=== PATIENT | male | born 1980 | race Two or more races ===

== ENCOUNTER 2018-09-04 15:25 | Emergency (ER) | payer BC ==
[2018-09-04] MEDS ORDERED: Flumazenil 0.1 MG/ML 5 ML MDV IV ONE (15:26)
[2018-09-04] MEDS ORDERED: Amiodarone 150 MG/3 ML SDV IV ONE (15:26)
[2018-09-04] MEDS ORDERED: Sodium Bicarbonate 8.4% 50 MEQ/50 ML Syringe IV ONE (15:26)
[2018-09-04] MEDS ORDERED: 50% Dextrose in Water 50 ML Syringe IV ONE (15:26)
--- NOTE | 2018-09-04 15:46 | EDM.PDOC ---
ED HPI GENERAL MEDICAL PROBLEM - General Stated Complaint: AMB Time Seen by Provider: 09/04/18 15:32 - History of Present Illness INITIAL COMMENTS - FREE TEXT/NARRATIVE: CODE BLUE note: Patient presents cardiopulmonary arrest intubated CPR in progress reported to be found in the [place] last seen heading towards the snowbank approximately 6: 30 AM. ACLS was initiated in the field on arrival here patient is pulseless nonrebreathing profoundly hypothermic with a unregistered rectal temp and ventricular fibrillation on the monitor central line was placed by myself ET tube was confirmed to be in good position with breath sounds equal bilaterally resuscitative measures are being continued and rewarming was initiated on arrival. Physical exam is a patient that's pulseless nonbreathing pupils are fixed and dilated chest abdomen and pelvis are without evidence of trauma or other significant findings. Impression is #1 cardiopulmonary arrest #2 hypothermia She remained fixed and dilated asystolic pulseless nonbreathing case was again discussed with family with general surgery and resuscitative measures were discontinued at 20:07 and patient was pronounced 20:07 ED ROS GENERAL - Review of Systems Review Of Systems: ROS reveals no pertinent complaints other than HPI. ED EXAM, GENERAL - Physical Exam Exam: See Below (See dictation) Course - Vital Signs Text/Narrative:: Active rewarming and resuscitative measures were continued for the better part of 3 hours we have accomplished a measured temperature of 75 he remains asystolic and unresponsive general surgery Dr. Hyatt was consult and is presenting to the ER to discuss case with family I also discussed case with Dr. Arguelles trauma surgery at who also agrees that any further resuscitative measures are futile at this point and there is no chance of survival. This was discussed with family by Dr. Kong and myself patient remained pulseless nonbreathing fixed and dilated with an asystolic rhythm and was pronounced at 2014 Last Recorded V/S: Last Vital Signs Temp 25.1 C L 09/04/18 19:21 Pulse 102 H 09/04/18 15:30 Resp 12 09/04/18 15:30 BP Pulse Ox 100 09/04/18 15:30 - Orders/Labs/Meds Orders: Active Orders 24 hr Category Date Time Status Cardiac Monitoring [RC] . DIRECTED Care 09/04/18 15:54 Active Communication Order [RC] STAT Care 09/04/18 15:53 Active EKG Documentation Completion [RC] STAT Care 09/04/18 15:53 Active Oxygen Therapy, ED [RC] ASDIRECTED Care 09/04/18 15:54 Active Chest 1V Frontal [CR] Stat Exams 09/04/18 15:53 Ordered Sodium Chloride 0.9% [Saline Flush] Med 09/04/18 15:54 Active 10 ml FLUSH ASDIRECTED PRN Sodium Chloride 0.9% [Saline Flush] Med 09/04/18 15:54 Active 2.5 ml FLUSH ASDIRECTED PRN Saline Lock Insert [OM.PC] Stat Oth 09/04/18 15:54 Ordered Medication Orders Sodium Chloride (Saline Flush) 10 ml FLUSH ASDIRECTED PRN PRN Reason: Keep Vein Open Sodium Chloride (Saline Flush) 2.5 ml FLUSH ASDIRECTED PRN PRN Reason: Keep Vein Open Labs: Laboratory Tests 09/04/18 09/04/18 09/04/18 Range/Units 15:30 15:30 15:30 WBC 17.65 H (4.0-11.0) K/uL RBC 4.18 L (4.50-5.90) M/uL Hgb 12.5 L (13.0-17.0) g/dL Hct 36.9 L (38.0-50.0) % MCV 88.3 (80.0-98.0) fL MCH 29.9 (27.0-32.0) pg MCHC 33.9 (31.0-37.0) g/dL RDW Std Deviation 42.2 (28.0-62.0) fl RDW Coeff of Suman 13 (11.0-15.0) % Plt Count 140 L (150-400) K/uL MPV 9.80 (7.40-12.00) fL Neut % (Auto) 62.6 (48.0-80.0) % Lymph % (Auto) 30.8 (16.0-40.0) % [place] % (Auto) 6.3 (0.0-15.0) % Eos % (Auto) 0.1 (0.0-7.0) % Baso % (Auto) 0.2 (0.0-1.5) % Neut # (Auto) 11.1 H (1.4-5.7) K/uL Lymph # (Auto) 5.4 H (0.6-2.4) K/uL [place] # (Auto) 1.1 H (0.0-0.8) K/uL Eos # (Auto) 0.0 (0.0-0.7) K/uL Baso # (Auto) 0.0 (0.0-0.1) K/uL Nucleated RBC % 0.0 /100WBC Nucleated RBCs # 0 K/uL INR 1.24 Sodium (136-148) mmol/L Potassium (3.5-5.1) mmol/L Chloride (98-107) mmol/L Carbon Dioxide (21.0-32.0) mmol/L BUN (7.0-18.0) mg/dL Creatinine (0.8-1.3) mg/dL Est Cr Clr Drug Dosing Estimated GFR (MDRD) ml/min Glucose (74-106) mg/dL POC Glucose (60-110) mg/dL Calcium (8.5-10.1) mg/dL Total Bilirubin (0.2-1.0) mg/dL AST (15-37) IU/L ALT (14-63) IU/L Alkaline Phosphatase (46-116) U/L Total Protein (6.4-8.2) g/dL Albumin (3.4-5.0) g/dL Globulin (2.6-4.0) g/dL Albumin/Globulin Ratio (0.9-1.6) Urine Color Urine Appearance Urine pH (5.0-8.0) Ur Specific Vernon (1.001-1.035) Urine Protein (NEGATIVE) mg/dL Urine Glucose (UA) (NEGATIVE) mg/dL Urine Ketones (NEGATIVE) mg/dL Urine Occult Blood (NEGATIVE) Urine Nitrite (NEGATIVE) Urine Bilirubin (NEGATIVE) Urine Urobilinogen (<2.0) EU/dL Ur Leukocyte Esterase (NEGATIVE) Urine RBC (0-2/HPF) Urine WBC (0-5/HPF) Ur Epithelial Cells (NONE-FEW) Amorphous Sediment (NEGATIVE) Urine Bacteria (NEGATIVE) Hyaline Casts (0-2/LPF) Urine Mucus (NONE-MOD) Urine Opiates Screen NEGATIVE (NEGATIVE) Ur Oxycodone Screen NEGATIVE (NEGATIVE) Urine Methadone Screen NEGATIVE (NEGATIVE) Ur Barbiturates Screen NEGATIVE (NEGATIVE) Ur Phencyclidine Scrn NEGATIVE (NEGATIVE) Ur Amphetamine Screen NEGATIVE (NEGATIVE) U Methamphetamines Scrn NEGATIVE (NEGATIVE) U Benzodiazepines Scrn NEGATIVE (NEGATIVE) U Cocaine Metab Screen POSITIVE (NEGATIVE) U Marijuana (THC) Screen NEGATIVE (NEGATIVE) Ethyl Alcohol mg/dL 09/04/18 09/04/18 09/04/18 Range/Units 15:30 15:30 16:36 WBC (4.0-11.0) K/uL RBC (4.50-5.90) M/uL Hgb (13.0-17.0) g/dL Hct (38.0-50.0) % MCV (80.0-98.0) fL MCH (27.0-32.0) pg MCHC (31.0-37.0) g/dL RDW Std Deviation (28.0-62.0) fl RDW Coeff of Suman (11.0-15.0) % Plt Count (150-400) K/uL MPV (7.40-12.00) fL Neut % (Auto) (48.0-80.0) % Lymph % (Auto) (16.0-40.0) % [place] % (Auto) (0.0-15.0) % Eos % (Auto) (0.0-7.0) % Baso % (Auto) (0.0-1.5) % Neut # (Auto) (1.4-5.7) K/uL Lymph # (Auto) (0.6-2.4) K/uL [place] # (Auto) (0.0-0.8) K/uL Eos # (Auto) (0.0-0.7) K/uL Baso # (Auto) (0.0-0.1) K/uL Nucleated RBC % /100WBC Nucleated RBCs # K/uL INR Sodium 142 (136-148) mmol/L Potassium 3.7 (3.5-5.1) mmol/L Chloride 107 (98-107) mmol/L Carbon Dioxide 14.9 L (21.0-32.0) mmol/L BUN 22 H (7.0-18.0) mg/dL Creatinine 1.3 (0.8-1.3) mg/dL Est Cr Clr Drug Dosing TNP Estimated GFR (MDRD) > 60.0 ml/min Glucose 33 L* (74-106) mg/dL POC Glucose 180 H (60-110) mg/dL Calcium 7.8 L (8.5-10.1) mg/dL Total Bilirubin 0.1 L (0.2-1.0) mg/dL AST 145 H (15-37) IU/L ALT 105 H (14-63) IU/L Alkaline Phosphatase 54 (46-116) U/L Total Protein 5.8 L (6.4-8.2) g/dL Albumin 2.8 L (3.4-5.0) g/dL Globulin 3.0 (2.6-4.0) g/dL Albumin/Globulin Ratio 0.9 (0.9-1.6) Urine Color YELLOW Urine Appearance CLEAR Urine pH 5.5 (5.0-8.0) Ur Specific Vernon >= 1.030 (1.001-1.035) Urine Protein 30 H (NEGATIVE) mg/dL Urine Glucose (UA) NEGATIVE (NEGATIVE) mg/dL Urine Ketones NEGATIVE (NEGATIVE) mg/dL Urine Occult Blood LARGE H (NEGATIVE) Urine Nitrite NEGATIVE (NEGATIVE) Urine Bilirubin NEGATIVE (NEGATIVE) Urine Urobilinogen 0.2 (<2.0) EU/dL Ur Leukocyte Esterase NEGATIVE (NEGATIVE) Urine RBC 2-4 (0-2/HPF) Urine WBC 1-3 (0-5/HPF) Ur Epithelial Cells RARE (NONE-FEW) Amorphous Sediment FEW (NEGATIVE) Urine Bacteria FEW (NEGATIVE) Hyaline Casts 1-3 (0-2/LPF) Urine Mucus FEW (NONE-MOD) Urine Opiates Screen (NEGATIVE) Ur Oxycodone Screen (NEGATIVE) Urine Methadone Screen (NEGATIVE) Ur Barbiturates Screen (NEGATIVE) Ur Phencyclidine Scrn (NEGATIVE) Ur Amphetamine Screen (NEGATIVE) U Methamphetamines Scrn (NEGATIVE) U Benzodiazepines Scrn (NEGATIVE) U Cocaine Metab Screen (NEGATIVE) U Marijuana (THC) Screen (NEGATIVE) Ethyl Alcohol 173 mg/dL 09/04/18 Range/Units 17:17 WBC (4.0-11.0) K/uL RBC (4.50-5.90) M/uL Hgb (13.0-17.0) g/dL Hct (38.0-50.0) % MCV (80.0-98.0) fL MCH (27.0-32.0) pg MCHC (31.0-37.0) g/dL RDW Std Deviation (28.0-62.0) fl RDW Coeff of Suman (11.0-15.0) % Plt Count (150-400) K/uL MPV (7.40-12.00) fL Neut % (Auto) (48.0-80.0) % Lymph % (Auto) (16.0-40.0) % [place] % (Auto) (0.0-15.0) % Eos % (Auto) (0.0-7.0) % Baso % (Auto) (0.0-1.5) % Neut # (Auto) (1.4-5.7) K/uL Lymph # (Auto) (0.6-2.4) K/uL [place] # (Auto) (0.0-0.8) K/uL Eos # (Auto) (0.0-0.7) K/uL Baso # (Auto) (0.0-0.1) K/uL Nucleated RBC % /100WBC Nucleated RBCs # K/uL INR Sodium (136-148) mmol/L Potassium (3.5-5.1) mmol/L Chloride (98-107) mmol/L Carbon Dioxide (21.0-32.0) mmol/L BUN (7.0-18.0) mg/dL Creatinine (0.8-1.3) mg/dL Est Cr Clr Drug Dosing Estimated GFR (MDRD) ml/min Glucose (74-106) mg/dL POC Glucose 116 H (60-110) mg/dL Calcium (8.5-10.1) mg/dL Total Bilirubin (0.2-1.0) mg/dL AST (15-37) IU/L ALT (14-63) IU/L Alkaline Phosphatase (46-116) U/L Total Protein (6.4-8.2) g/dL Albumin (3.4-5.0) g/dL Globulin (2.6-4.0) g/dL Albumin/Globulin Ratio (0.9-1.6) Urine Color Urine Appearance Urine pH (5.0-8.0) Ur Specific [place] (1.001-1.035) Urine Protein (NEGATIVE) mg/dL Urine Glucose (UA) (NEGATIVE) mg/dL Urine Ketones (NEGATIVE) mg/dL Urine Occult Blood (NEGATIVE) Urine Nitrite (NEGATIVE) Urine Bilirubin (NEGATIVE) Urine Urobilinogen (<2.0) EU/dL Ur Leukocyte Esterase (NEGATIVE) Urine RBC (0-2/HPF) Urine WBC (0-5/HPF) Ur Epithelial Cells (NONE-FEW) Amorphous Sediment (NEGATIVE) Urine Bacteria (NEGATIVE) Hyaline Casts (0-2/LPF) Urine Mucus (NONE-MOD) Urine Opiates Screen (NEGATIVE) Ur Oxycodone Screen (NEGATIVE) Urine Methadone Screen (NEGATIVE) Ur Barbiturates Screen (NEGATIVE) Ur Phencyclidine Scrn (NEGATIVE) Ur Amphetamine Screen (NEGATIVE) U Methamphetamines Scrn (NEGATIVE) U Benzodiazepines Scrn (NEGATIVE) U Cocaine Metab Screen (NEGATIVE) U Marijuana (THC) Screen (NEGATIVE) Ethyl Alcohol mg/dL Meds: Medications Generic Name Dose Route Start Last Admin Trade Name Freq PRN Reason Stop Dose Admin Sodium Chloride 10 ml 09/04/18 15:54 Saline Flush FLUSH ASDIRECTED PRN Keep Vein Open Sodium Chloride 2.5 ml 09/04/18 15:54 Saline Flush FLUSH ASDIRECTED PRN Keep Vein Open Discontinued Medications Generic Name Dose Route Start Last Admin Trade Name Freq PRN Reason Stop Dose Admin Sodium Chloride 1,000 mls @ 999 mls/hr 09/04/18 15:53 Normal Saline IV 09/04/18 16:53 STAT ONE Departure - Departure Time of Disposition: 20:06 Disposition: 20 Clinical Impression: Cardiopulmonary arrest - Discharge Information
[2018-09-04] MEDS ORDERED: Sodium Chloride 0.9% 1,000 ML IV ONE (15:53)
[2018-09-04] MEDS ORDERED: Sodium Chloride 0.9% 2.5 ML Syringe FLUSH PRN (15:54)
[2018-09-04] MEDS ORDERED: Sodium Chloride 0.9% 10 ML Syringe FLUSH PRN (15:54)
[2018-09-04 16:23] LABS: CHLORIDE,CL 107 mmol/L (98-107); SODIUM,NA 142 mmol/L (136-148)
--- NOTE | 2018-09-05 04:03 | CONS ---
DATE OF CONSULTATION: 09/04/2018 DATE OF : 1980 PRIMARY CARE PHYSICIAN: Unknown PCP REFERRING PHYSICIAN: Malcolm Fernandez M.D. CONSULTING PHYSICIAN: Trauma, hypothermia, second opinion. HISTORY OF PRESENT ILLNESS: The patient is a 38-year-old gentleman, missing overnight and found overnight and found 6:00 in the morning outside the house. Downtime unknown. The patient was taken to the emergency room at 3:30 for hypothermia resuscitation. CPR had been started at field; and body core temperature is not able to record, and CPR was continued at the ED and code was called. According to Dr. Fernandez, the patient never had sign of life when seen in the emergency room. According to the chart, upon arrival, the patient's pupils were fixed and dilated and no pulse. CPR has been initiated and continued, and aggressive rewarming has been done from 3:30 to 6:30; despite aggressive rewarming technique, the patient still has no pulse and no signs of life. By then, family requests a second opinion, and I was called for the consult at 6:30pm, approximately 3 hrs after ED arrival. ALLERGIES: Please refer to nursing for details. MEDICATIONS: Please refer to nursing for details. PAST SURGICAL HISTORY: Unavailable a the time of dictation. PAST MEDICAL HISTORY: Unavailable a the time of dictation. PHYSICAL EXAMINATION: On examination, the patient is cold to touch on the head. Pupils are fixed and dilated. Mechanical CPR is being ongoing. There is no crepitus. Trachea is midline. When the mechanical CPR machine stops, monitor shows a flat line, and there is no palpable pulse. GC score 3. IMPRESSION: Hypothermia, down time unknown and apparently overnight seen in the emergency room at 1530 hours. There was never any sign of life noted by family or ED team , and despite CPR and aggressive rewarming for 3 hours, the patient still has no signs of life or recordable temp; at one point, it was reported [address] Fernandez's assessment. Continued resuscitation would be futile and prognosis grim. The patient's family requests to talk to family member and also talk to and both has been accomplished, and my consult report has been shared with Dr. Fernandez and the family. As always, thank you for the kind referral. ANNALISE / ERICA /[id number] LAUREN
== END 2018-09-04 22:32 | disposition expired ==
LOC: EDBD 15:25 → MW.ED 15:25
DX: I46.9 Cardiac arrest, cause unspecified (principal)
CPT/HCPCS: 36556; 43753; 51702; 80053; 80305; 81001; 82962; 85025; 85610; 92950; 99291; 99292; G0390; G0480; J0282; J3490; J7060; 96361; 96374; 96375; 99285